=== PATIENT | male | born 1960 | race Caucasian/White ===

== ENCOUNTER 2020-09-04 15:33 | Emergency (ER) | payer BC ==
[~2020-09-04] VITALS: Ht 180.3 cm; Wt 106.8 kg
[2020-09-04 15:36] VITALS: BP 172/109; Ht 180.3 cm; Wt 106.8 kg
[2020-09-04] MEDS ORDERED: METHOCARBAMOL500 MG PO (17:08)
== END 2020-09-04 17:22 | disposition home or self-care (01) ==
LOC: D.ER 15:33
DX: S16.1XXA Strain of muscle, fascia and tendon at neck level, initial encounter (principal); E11.9 Type 2 diabetes mellitus without complications; I10 Essential (primary) hypertension; V89.2XXA Person injured in unspecified motor-vehicle accident, traffic, initial encounter; Y93.9 Activity, unspecified; Y92.9 Unspecified place or not applicable

== ENCOUNTER 2020-09-20 11:39 | Emergency (ER) | payer BC ==
[~2020-09-20] VITALS: Ht 180.3 cm; Wt 106.8 kg
[~2020-09-20 11:39] MED LIST: METHOCARBAMOL500 MG PO
[2020-09-20 11:49] VITALS: BP 153/100; Ht 180.3 cm; Wt 106.8 kg
[2020-09-20] MEDS ORDERED: NEURONTIN 300300 MG PO (11:53)
[2020-09-20] MEDS ORDERED: JANUVIA100 MG PO (11:53)
[2020-09-20] MEDS ORDERED: LEVEMIR IN100 UNITS/ SC (11:54)
[2020-09-20] MEDS ORDERED: DICLOFENAC SODI50 MG PO (12:50)
[2020-09-20] MEDS ORDERED: DECADRON4 MG PO (12:50)
[2020-09-20] MEDS ORDERED: ZANAFLEX4 MG PO (12:50)
== END 2020-09-20 13:00 | disposition home or self-care (01) ==
LOC: D.ER 11:39
DX: S16.1XXA Strain of muscle, fascia and tendon at neck level, initial encounter (principal); M54.2 Cervicalgia; E11.9 Type 2 diabetes mellitus without complications; I10 Essential (primary) hypertension; Z79.4 Long term (current) use of insulin; Z72.0 Tobacco use; V89.2XXA Person injured in unspecified motor-vehicle accident, traffic, initial encounter; Y93.9 Activity, unspecified; Y92.9 Unspecified place or not applicable